=== PATIENT | female | born 1955 | race Caucasian/White ===

== ENCOUNTER 2018-12-28 06:13 | Inpatient (IN) | payer BC, OTHER ==
[2018-12-22 16:00] LABS: HEMATOCRIT 40.5 % (37.0-47.0); HEMOGLOBIN 13.6 gm/dL (12.0-15.0); MCH 30.8 pg (26.0-34.0); MCHC 33.6 g/dL (28.0-37.0); MCV 91.8 fL (80.0-100.0); MPV 9.1 fl. (7.2-11.1); RBC 4.41 mil/uL (4.20-5.00); RDW-CV 14.5 % (10.5-14.5); WBC 7.6 thou/uL (4.0-11.0)
[2018-12-22 16:09] LABS: PROTIME 10.3 Seconds (9.20-11.50)
[2018-12-22 16:28] LABS: ALBUMIN 4.1 g/dL (3.4-5.0); CALCIUM 9.7 mg/dL (8.5-10.1); POTASSIUM 3.8 mmol/L (3.5-5.1); TOTAL BILIRUBIN 0.2 mg/dL (<0.1-1.0)
[2018-12-22 16:30] LABS: URINE BLOOD NEGATIVE (Negative); URINE CLARITY CLEAR; URINE COLOR YELLOW; URINE GLUCOSE-RANDOM NEGATIVE (Negative); URINE KETONES NEGATIVE (Negative); URINE LEUKOCYTES-REFLEX NEGATIVE (Negative); URINE NITRITE-REFLEX NEGATIVE (Negative); URINE PROTEIN TRACE (Negative); URINE SPECIFIC GRAVITY >= 1.030 (1.005-1.030); URINE UROBILINOGEN 0.2 E.U./dl (0.2-1.0)
[2018-12-22 16:33] LABS: ICTOTEST (BILI CONFIRMATORY) Negative (Negative); URINE BILIRUBIN 1+ (Negative)
--- NOTE | 2018-12-22 16:45 | EKG ---
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 12/22/18 1645 1615 1615 Moses Oviedo MD, FACC /EPI
[~2018-12-28] VITALS: Ht 167.6 cm; Wt 108.9 kg
--- NOTE | ~2018-12-28 | H ---
[address] [address] HISTORY AND PHYSICAL Name: GEOVANNA ENG Room: [address]#: [id number] Admission: 12/28/18 Attend Phys: Tia Aguilera Discharge: 12/30/18 Date of : 59 Report #: [id number] THIS REPORT FOR: //name// For History and Physical please refer to the consultation note in the patient's medical record. By: [id number] Records Staff MARYA /RUMA
[~2018-12-28 06:13] MED LIST: CIPRO250 M2 PO; FLEXERIL PO; FOLIC ACID1 MG PO; LEFLUNOMIDE 1010 MG PO; LEUCOVORIN CALCI5 M2 PO; MELOXICAM15 MG PO; METHOTREXA25 MG/1 M1 SUBQ; SINGULAIR 10 MG10 M1 PO; VITAMIN D3400 UNI2 PO; ZOFRAN4 MG PO
[2018-12-28 11:30] VITALS: BP 146/77
[2018-12-28 16:00] VITALS: BP 152/66
[2018-12-28 20:38] VITALS: BP 112/72
[2018-12-29] VITALS: BP 123/73
[2018-12-29 04:00] VITALS: BP 130/71
[2018-12-29 05:10] LABS: HEMATOCRIT 37.6 % (37.0-47.0); HEMOGLOBIN 12.5 gm/dL (12.0-15.0)
[2018-12-29 07:20] VITALS: BP 136/71
[2018-12-29 19:40] VITALS: BP 137/68
[2018-12-30 04:13] LABS: HEMATOCRIT 33.2 % (37.0-47.0)
--- NOTE | 2018-12-30 08:26 | OP ---
[facility] [address] [place] [address] OPERATIVE REPORT Name: GEOVANNA ENG Room: [address] IN [facility]#: [id number] Admission: 12/28/18 Attend Phys: Tia Aguilera Discharge: Date of : 59 Report #: [id number] THIS REPORT FOR: //name// CC: NICO Carlos DATE OF SERVICE: 12/28/2018 PREOPERATIVE DIAGNOSIS: Left hip osteoarthritis. POSTOPERATIVE DIAGNOSIS: Left hip osteoarthritis. PROCEDURE: Left total hip arthroplasty. SURGEON: Adilson Velázquez II, DO WOOL GROWER: MARY Thornton ANESTHESIA: General endotracheal. ESTIMATED BLOOD LOSS: 300 mL. ANTIBIOTICS: Ancef preoperatively. DRAINS: Medium Hemovac. COMPLICATIONS: None. CONDITION: The patient is stable to recovery room. IMPLANTS: Listed in operative record and progress note. BRIEF HISTORY: The patient was seen in the preoperative area. Preoperative H and P was performed. Site was marked. Questions were answered. Risks and benefits were discussed in great detail about surgery. The patient wished to proceed, assuming all risks. DESCRIPTION OF PROCEDURE: The patient was taken to the operative suite and placed supine on the operative table, given appropriate anesthesia. The patient's operative hip was placed in the Hyde table leg balderas and sterilely prepped and draped in the supine position. Surgery began by a longitudinal incision over the anterior aspect of the hip. This was carried down through the subcutaneous tissues. A small refugio was made in the tensor fascia. It was then split along its fibers and retracted laterally. An H capsulotomy was then performed and careful hemostasis was obtained with electrocautery and [address] [address] OPERATIVE REPORT Name: GEOVANNA ENG Room: [address] IN [facility].#: [id number] Admission: 12/28/18 Attend Phys: Tia Aguilera Discharge: Date of : 59 Report #: [id number] Aquamantys. The head and neck cutting alignment guide was checked with fluoroscopic guidance. Appropriate cut was made to the head and neck and this was removed. Attention was then turned to the acetabulum. Excess labrum was removed. It was then reamed in sequential fashion up to appropriate size. This showed excellent bleeding bone in excellent position on fluoroscopic guidance. The acetabular cup was then malleted into position and secured utilizing cancellous screws. Metal liner was then applied. The patient's leg was then rotated and extended in the Hyde table to expose the femur. It was then broached in sequential fashion up to appropriate size. The appropriate neck was then trialed with appropriate head length and showed excellent fit and fill and excellent stability of the hip through all range of motion. These trials were removed. The final stem was then malleted into position and the final head and neck was then malleted in position. It was reduced in appropriate fashion, checked with C-arm for appropriate leg length and showed excellent leg length throughout the exam without evidence of dislocation upon range of motion and shuck testing. Wound was then copiously irrigated. Hemostasis was maintained with electrocautery and Aquamantys. Pain cocktail was injected. PRP gel was sprayed throughout the internal aspects of the hip and drain was activated. The H capsulotomy was then closed utilizing #1 Vicryl in a [id number] fashion. The tensor fascia was closed with #1 Vicryl in running fashion and skin was closed with 2-0 Vicryl and running 3-0 Monocryl with Dermabond and sterile dressing applied. The patient was transported to recovery room in stable condition. Counts were correct throughout the procedure. <ELECTRONICALLY SIGNED> By: Adilson Velázquez II, DO 12/30/18 0826 0731 [id number] Velázquez II, DO /nt
[2018-12-30 09:00] VITALS: BP 125/65
[2018-12-30 13:31] VITALS: BP 137/68
[2018-12-30 16:00] VITALS: BP 131/72
[2018-12-30] MEDS ORDERED: PERCOCET 5-3251 EACH PO (17:13)
[2018-12-30 17:14] VITALS: BP 137/68
[2018-12-30] MEDS ORDERED: XARELTO10 M1 PO (17:14)
== END 2018-12-30 17:40 | disposition home health service (06) | DRG 470 ==
LOC: M.PRE 06:13 → M.TBA 09:56 → M.PRE 11:06 → M.ORTHSURG 15:34
PROVIDERS: Orthopaedic Surgery; ADMIT Internal Medicine
PROC: 0SRB03Z Replacement of Left Hip Joint with Ceramic Synthetic Substitute, Open Approach (ICD-10-PCS; principal; 2018-12-28)
DX: M16.12 Unilateral primary osteoarthritis, left hip (principal); M06.9 Rheumatoid arthritis, unspecified; J45.909 Unspecified asthma, uncomplicated; Z80.1 Family history of malignant neoplasm of trachea, bronchus and lung